=== PATIENT | female | born 1980 | race Caucasian/White ===

== ENCOUNTER 2016-06-30 17:29 | Emergency (ER) | payer MEDICAID, OTHER ==
[2016-06-30] MEDS ORDERED: Dicyclomine 10 MG Cap PO ONE (17:35)
--- NOTE | 2016-06-30 18:09 | EDM.PDOC ---
ED HPI GENERAL MEDICAL PROBLEM - General Chief Complaint: General Stated Complaint: Dental pain Time Seen by Provider: 06/30/16 17:45 Source of Information: Reports: Patient, RN notes reviewed History Limitations: Reports: No limitations - History of Present Illness INITIAL COMMENTS - FREE TEXT/NARRATIVE: 36 year old female presents to the ED with right lower molar pain and right facial swelling. The symptoms started yesterday and have progressively worsened. She fractured the molar quite some time ago but hadn't had any trouble until now. She tried to see a dentist today but was unable to get in with anyone. She denies fever or chills, sore throat, foul taste in mouth. She' s taken Tylenol and is using essential oils with minimal relief. Tooth/Teeth Pain Score (Numeric/FACES): 8 - Related Data Allergies Allergy/AdvReac Type Severity Reaction Status Date / Time tramadol Allergy Headache Verified 06/30/16 17:37 Home Meds: Home Meds Acetaminophen/HYDROcodone [Piqua 325-5 MG] 1 - 2 tab PO Q6H PRN #10 tablet 06/30 [Rx] Amoxicillin/Potassium Clav [Augmentin 875-125 Tablet] 1 each PO BID #14 tablet 06/30/16 [Rx] Gabapentin [Neurontin] 1,200 mg PO TID 06/30/16 [History] Naproxen 500 mg PO BID PRN #20 tablet 06/30/16 [Rx] Past Medical History Neurological History: Reports: Other (see below) Other Neuro History: trigeminal neuralgia - Past Surgical History GI Surgical History: Reports: Appendectomy Female Surgical History: Reports: Oophorectomy Social & Family History - Tobacco Use Smoking Status *Q: Current Every Day Smoker Years of Tobacco use: 15 Packs/Tins Daily: 0.3 ED ROS GENERAL - Review of Systems Review Of Systems: See Below Constitutional: Reports: no symptoms. Denies: fever, chills HEENT: Reports: Dental pain, Other (facial swelling ). Denies: Ear pain, Throat pain GI/Abdominal: Reports: No symptoms. Denies: Nausea, Vomiting ED EXAM, GENERAL - Physical Exam Exam: See Below Exam Limited By: No limitations General Appearance: alert, WD/WN, no apparent distress Nose: normal inspection, normal mucosa Throat/Mouth: Normal inspection, Normal oropharynx, Other (fractured lower molar with surrounding gum swelling. She also has right sided facial swelling and cervical lymphadenopathy ) Head: atraumatic, normocephalic Neck: normal inspection, supple, full range of motion, lymphadenopathy (R), tender lateral (right) Respiratory/Chest: no respiratory distress, lungs clear, normal breath sounds Cardiovascular: regular rate, rhythm Course - Vital Signs Last Recorded V/S: Last Vital Signs Temp 98.6 F 06/30/16 17:38 Pulse 106 H 06/30/16 17:38 Resp 16 06/30/16 17:38 BP 164/116 H 06/30/16 17:38 Pulse Ox 99 06/30/16 17:38 Departure - Departure Time of Disposition: 17:57 Disposition: Home, Self-Care 01 Condition: good Clinical Impression: Dental abscess Prescriptions: Acetaminophen/HYDROcodone [Piqua 325-5 MG] 1 - 2 tab PO Q6H PRN #10 tablet PRN Reason: Pain Amoxicillin/Potassium Clav [Augmentin 875-125 Tablet] 1 each PO BID #14 tablet Naproxen 500 mg PO BID PRN #20 tablet PRN Reason: Pain Instructions: Dental Caries Referrals: Sully Balderrama [Primary Care Provider] - Forms: ED Department Discharge Additional Instructions: Follow-up with Dentist as soon as possible to have tooth removed Naproxyn 500mg twice a day as needed for mild pain Piqua 1-2 tabs every 6 hours as needed for more severe pain No driving for at least 8 hours after taking Piqua Augmentin 1 tab twice a day for 7 days
[2016-06-30 18:53] VITALS: BP 138/100
== END 2016-06-30 18:26 | disposition home or self-care (01) ==
LOC: JD.ED 17:29
DX: K04.7 Periapical abscess without sinus (principal); F17.210 Nicotine dependence, cigarettes, uncomplicated; Z90.49 Acquired absence of other specified parts of digestive tract; Z88.5 Allergy status to narcotic agent; Z79.899 Other long term (current) drug therapy
CPT/HCPCS: 99283

== ENCOUNTER 2016-10-05 11:04 | Emergency (ER) | payer BC, MEDICAID ==
[2016-10-05 11:16] VITALS: BP 179/116
--- NOTE | 2016-10-05 11:38 | EDM.PDOC ---
ED HPI GENERAL MEDICAL PROBLEM - General Chief Complaint: Upper Extremity Injury/Pain Stated Complaint: RT WRIST SWOLLEN Time Seen by Provider: 10/05/16 11:27 Source of Information: Reports: Patient History Limitations: Reports: No Limitations - History of Present Illness INITIAL COMMENTS - FREE TEXT/NARRATIVE: Patient is a 36-year-old female presents ED complaining of right wrist and hand pain. 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 Ever since then she's been experiencing pain to the wrist/hand that does radiate into her forearm. Pain is worsen with flexion,extension, internal, and external rotation of the wrist. Pain is worsened with palpation as well. No numbness or tingling present. Minimal swelling present as well. She's taken ibuprofen intermittently with minimal relief. She takes gabapentin for trigeminal neuralgia. Otherwise she has no additional complaints at this time. Right Wrist Pain Score (Numeric/FACES): 7 - Related Data Allergies Allergy/AdvReac Type Severity Reaction Status Date / Time tramadol Allergy Headache Verified 10/05/16 11:16 Home Meds: Home Meds Gabapentin [Neurontin] 1,200 mg PO TID 06/30/16 [History] Naproxen 500 mg PO BID PRN #20 tablet 06/30/16 [Rx] Past Medical History Neurological History: Reports: Other (See Below) Other Neuro History: trigeminal neuralgia - Past Surgical History GI Surgical History: Reports: Appendectomy Female Surgical History: Reports: Hysterectomy, Oophorectomy Musculoskeletal Surgical History: Reports: Shoulder Surgery, Other (See Below) Other Musculoskeletal Surgeries/Procedures:: rotator cuff and collar bone repair left side Social & Family History - Tobacco Use Smoking Status *Q: Current Every Day Smoker Years of Tobacco use: 10 Packs/Tins Daily: 0.5 - Caffeine Use Caffeine Use: Reports: Coffee - Recreational Drug Use Recreational Drug Use: No Review of Systems - Review of Systems Review Of Systems: ROS reveals no pertinent complaints other than HPI. ED EXAM, GENERAL - Physical Exam Exam: See Below Exam Limited By: No Limitations General Appearance: Alert, WD/WN, No Apparent Distress Ears: Hearing Grossly Normal Nose: Normal Inspection Throat/Mouth: Normal Voice, No Airway Compromise Neck: Normal Inspection, Supple Respiratory/Chest: No Respiratory Distress, Lungs Clear, No Accessory Muscle Use Cardiovascular: Normal Peripheral Pulses, Regular Rate, Rhythm Peripheral Pulses: 2+: Radial (R) Extremities: Normal Inspection, No Pedal Edema, Normal Capillary Refill, Other ( Pain with palpation of the dorsal/ventral/medial/lateral aspect of the right wrist. Minimal swelling present. Decreased range of motion present. No deep bony abnormalities noted. No ecchymosis. Pain with palpation of the right fifth metacarpal. No swelling, bony abnormalities, ecchymosis present. Minimal pain with palpation of the lateral aspect of the right forearm. Full range of motion of the elbow and shoulder. ) Neurological: Alert, Oriented, Normal Cognition, No Motor/Sensory Deficits Psychiatric: Normal Affect, Normal Mood Skin Exam: Warm, Dry, Intact, Normal Color Course - Vital Signs Last Recorded V/S: Last Vital Signs Temp 97.3 F 10/05/16 11:11 Pulse 92 10/05/16 11:11 Resp 18 10/05/16 11:11 BP 179/116 H 10/05/16 11:11 Pulse Ox 100 10/05/16 11:11 - Re-Assessments/Exams Free Text/Narrative Re-Assessment/Exam: Ordered x-ray of the right wrist and hand. 10/05/16 12:02 X-rays reviewed with Dr. Long. No acute bony abnormalities the wrist and hand. Wrist splint will be applied. On examination patient has minimal pain along the scaphoid process. Thus removable splint will be applied. Discharge instructions as documented. Departure - Departure Time of Disposition: 12:07 Disposition: Home, Self-Care 01 Condition: Good Clinical Impression: Right wrist sprain Qualifiers: Encounter type: initial encounter Qualified Code(s): S63.501A - Unspecified sprain of right wrist, initial encounter - Discharge Information Instructions: Cast or Splint Care, [id number] Referrals: Sully Balderrama [Primary Care Provider] - Forms: ED Department Discharge Additional Instructions: Wear splint throughout the course of the day only taking off to shower/wash hands. Apply ice to the affected area 4-6 times daily, 20 minutes in duration, do not apply ice directly on the skin. Elevate when able to reduce swelling and pain. Take Tylenol and ibuprofen in alternating fashion for pain. See your PCP in 7 days if symptoms have not drastically improved. Return to the ED for any new or worsening symptoms. Injury may take 4-6 weeks to completely heal.
--- NOTE | 2016-10-05 13:39 | CR ---
Right hand: Two views of the right hand were obtained. Comparison: No previous hand study. Joint spaces are maintained. Very minimal osteophyte is noted off the IP joint of the thumb. No fracture or other bony abnormality is seen. Impression: 1. Minimal osteophyte off the IP joint of the thumb. 2. Two-view right hand exam is otherwise unremarkable. Diagnostic code #2
--- NOTE | 2016-10-05 13:39 | CR ---
Right wrist: Four views of the right wrist were obtained. Comparison: No previous study. Joint spaces are preserved. No fracture, dislocation or other bony abnormality is seen. Impression: 1. No abnormality is identified on four-view right wrist exam. Diagnostic code #1
== END 2016-10-05 12:20 | disposition home or self-care (01) ==
LOC: JD.ED 11:04
DX: S63.501A Unspecified sprain of right wrist, initial encounter (principal); F17.210 Nicotine dependence, cigarettes, uncomplicated; Z90.49 Acquired absence of other specified parts of digestive tract; Z90.710 Acquired absence of both cervix and uterus; Z98.890 Other specified postprocedural states; Z88.5 Allergy status to narcotic agent; X50.1XXA Overexertion from prolonged static or awkward postures, initial encounter
CPT/HCPCS: 73110-26-RT; 73110-RT; 73120-26-RT; 73120-RT; 99282; 99283

== ENCOUNTER 2016-10-15 11:09 | Emergency (ER) | payer BC, MEDICAID ==
[2016-10-15 11:18] VITALS: BP 160/127
--- NOTE | 2016-10-15 12:09 | EDM.PDOC ---
ED HPI GENERAL MEDICAL PROBLEM - General Chief Complaint: Upper Extremity Injury/Pain Stated Complaint: R WRIST INJURY Time Seen by Provider: 10/15/16 11:38 Source of Information: Reports: Patient History Limitations: Reports: No Limitations - History of Present Illness INITIAL COMMENTS - FREE TEXT/NARRATIVE: 36 year old female presents for evaluation and treatment of an injury to the right wrist. Original injury occurred on 10-05-16. 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 She was working with a drill. It sounds like she was drilling and the drill overpowered her causing her to twist her wrist. she was seen in the ER. Xrays of the wrist and hand were preformed. She was prescribed tylenol and ibuprofen for pain and given a wrist splint. She has followed-up with her PCP o 10-11-16. She was prescribed percocoet and given a referral to OT. Since seeing her PCP she reports she reinjured the wrist twice. She states this week she was building a shelf when the shelf fell onto her wrist. Patient reports the pain is worsening. She describes it as an extreme, sharp, shooting pain that extends from fingers 3-5 along the ulnar aspect of her forearm and into her elbow. Pain is mostly concentrated in her right wrist. Reports associated skin discoloration , swelling, numbness and tingling. Patient is right handed. Patient has a past medical history of trigeminal neuralgia. She is currently on high dose gabapentin for this. States she took some percocet for her wrist pain she had left over from her trigeminal neuralgia. - Related Data Allergies Allergy/AdvReac Type Severity Reaction Status Date / Time tramadol Allergy Headache Verified 10/15/16 11:18 Home Meds: Home Meds Gabapentin [Neurontin] 1,200 mg PO TID 06/30/16 [History] Naproxen 500 mg PO BID PRN #20 tablet 06/30/16 [Rx] Acetaminophen/oxyCODONE [Percocet 325-5 MG] 1 tab PO Q6H PRN #10 tablet [Rx] Past Medical History Neurological History: Reports: Other (See Below) Other Neuro History: trigeminal neuralgia - Past Surgical History GI Surgical History: Reports: Appendectomy Female Surgical History: Reports: Hysterectomy, Oophorectomy Musculoskeletal Surgical History: Reports: Shoulder Surgery, Other (See Below) Other Musculoskeletal Surgeries/Procedures:: rotator cuff and collar bone repair left side Social & Family History - Tobacco Use Smoking Status *Q: Current Every Day Smoker Years of Tobacco use: 10 Packs/Tins Daily: 0.5 - Caffeine Use Caffeine Use: Reports: Coffee - Recreational Drug Use Recreational Drug Use: No Review of Systems - Review of Systems Review Of Systems: See Below Musculoskeletal: Reports: Arm Pain (right from fingers 3-5 to the elbow), Joint Swelling (reports swelling to the right wrist) Skin: Reports: Bruising (right wrist and distal forearm ulnar aspect) Neurological: Reports: Numbness, Tingling ED EXAM, GENERAL - Physical Exam Exam: See Below Exam Limited By: No Limitations General Appearance: Alert, WD/WN, No Apparent Distress Respiratory/Chest: No Respiratory Distress Cardiovascular: Normal Peripheral Pulses, Regular Rate, Rhythm Peripheral Pulses: 2+: Radial (L), Radial (R) Extremities: Normal Inspection, Limited Range of Motion (due to pain; pain with radial and ular deviation and flexion and extension), Other (tenderness to the right wrist and distal forearm greatest at the ulnar styloid; minimal swelling to the right wrist and distal forearm; no brusing or skin discloloration appreciated at this time). No: Increased Warmth Neurological: Alert, Oriented, Normal Cognition Psychiatric: Normal Affect, Normal Mood Skin Exam: Warm, Dry, Normal Color Course - Vital Signs Last Recorded V/S: Last Vital Signs Temp 36.6 C 10/15/16 11:15 Pulse 110 H 10/15/16 11:15 Resp 16 10/15/16 11:15 BP 160/127 H 10/15/16 11:15 Pulse Ox 100 10/15/16 11:15 - Re-Assessments/Exams Free Text/Narrative Re-Assessment/Exam: 10/15/16 12:51 I reviewed the xrays with the patient. No new fractures. Patient searched on [place] [employer]. 5 prescriptions for controlled substances within the last year from 2 prescribers. Most recent percocoet 5-325 #10 on . This was a 3 day supply. I feel that this is most likely an irritated ulnar nerve. I feel her distribution of pain follows the ulnar nerve. Patient does not agree and feels there is more going on. It is also possible that she ripped or even completely tore a tendon in the hand. Plan will be to schedule an MRI of the wrist this week and have her follow-up with her PCP for results and further care. Discharge instructions as documented. Departure - Departure Time of Disposition: 12:52 Disposition: Home, Self-Care 01 Condition: Fair Clinical Impression: Right wrist sprain Qualifiers: Encounter type: initial encounter Qualified Code(s): S63.501A - Unspecified sprain of right wrist, initial encounter - Discharge Information Prescriptions: Acetaminophen/oxyCODONE [Percocet 325-5 MG] 1 tab PO Q6H PRN #10 tablet PRN Reason: Pain Instructions: Wrist Sprain Referrals: Sully Balderrama [Primary Care Provider] - Forms: ED Department Discharge Additional Instructions: Call Monday to schedule the MRI. An out patient order has been placed for you to have an MRI. Please call [phone] and ask for radiology to schedule the MRI. Percocet 1 tab every 6 hours as needed for severe pain. I recommend you take ibuprofen 600 mg every 6 hours for continues pain relief. Percocet can be habit forming, I recommend you take as few of these as needed to control your pain. Do not drive or operate machinery within 12 hours of taking the Percocet. Continue to wear the wrist splint. Continue to elevate and ice the sore area. Follow-up with Dr. Littlejohn this week after MRI for further results and further management. Please return to the ER if your symptoms change or worsen.
--- NOTE | 2016-10-16 14:00 | CR ---
Right wrist: Four views of the right wrist were obtained. Comparison: Previous right wrist exam of 10/05/16. Joint spaces are maintained. No fracture, dislocation or other bony abnormality is seen. Impression: 1. No abnormality is identified on right wrist exam. No significant change is seen from prior wrist exam. Diagnostic code #1
== END 2016-10-15 13:05 | disposition home or self-care (01) ==
LOC: JD.ED 11:09
DX: S63.501A Unspecified sprain of right wrist, initial encounter (principal); F17.210 Nicotine dependence, cigarettes, uncomplicated; Z88.8 Allergy status to other drugs, medicaments and biological substances; Z90.49 Acquired absence of other specified parts of digestive tract; Z90.710 Acquired absence of both cervix and uterus; Z90.721 Acquired absence of ovaries, unilateral; Z98.890 Other specified postprocedural states; X58.XXXA Exposure to other specified factors, initial encounter
CPT/HCPCS: 73110-26-RT; 73110-RT; 99283